=== PATIENT | female | born 1930 | race Caucasian/White ===

== ENCOUNTER 2018-05-29 15:13 | Inpatient (IN) ==
[2018-05-29] MEDS ORDERED: Naloxone 0.4 MG/ML INJ IVP PRN (19:48)
[2018-05-29] MEDS ORDERED: D5% in Water 1,000 ML IVC PRN (19:53)
[2018-05-29] MEDS ORDERED: Dextrose Gel 15 GM/37.5 ML TUBE PO PRN ×2 (19:53)
[2018-05-29] MEDS ORDERED: *HR* Dextrose 50 % in Water (Syg) 50 ML SYRINGE IVP PRN (19:53)
[2018-05-29] MEDS ORDERED: Levofloxacin 750 MG/150 ML 750 MG/150 ML BAG IVPB SCH (20:15)
--- NOTE | 2018-05-29 20:15 | Internal Med History&Physical ---
Date of Encounter: 05/29/18 Time of Encounter: 20:07 Internal Medicine - H&P: HPI Chief complaint: Healthcare associated pneumonia Plans for Post Hospital Care: Hospice - Home History of present illness: Ms. Sma is a 87 year old female with a past medical history of CK D, NIDDM, hypertension, chronic pain and dementia currently on hospice care who initially presented to [facility] with complaints of several day history of worsening shortness of breath associated with cough and congestion. Given patient's dementia, I was unable to obtain a history from the patient and subsequent information was obtained from records. Patient was subsequently admitted to [facility] after findings of bilateral multilobar pneumonia and acute respiratory failure with hypoxia; she was started on broad-spectrum antibiotics for healthcare associated pneumonia coverage given a recent history of admission for pneumonia in March. Initial labs were notable for a white count of 28.6 with left shift. Her white blood cell count initially improved to 20.6 but then increased 28.6 yesterday. Levaquin was added to her antibiotic coverage. Repeat chest x-ray at [facility] prior to transfer revealed increasing bilateral multifocal infiltrates and areas of consolidation thus prompting transfer to [facility] for further evaluation. Patient is hospice and is DNR CC. However, family has requested intervention for her pneumonia. On my assessment, patient was lying in bed, alert oriented 1. Patients nasal cannula was found on the floor. Pulse Ox showed O2 saturation of 86-87% on room air. She appears to be severely demented but answers and responds to questions somewhat appropriately and is able to follow commands. Past Med Surg Social Fam HX - Past Medical History Medical history: arthritis, cancer, dementia, diabetes, fibromyalgia, hyperlipidemia, hypertension, migraine, renal disease Additional medical history: Hx rt breast CA Lt nephrectomy Psychiatric history: anxiety, depression - Past Surgical History Surgical History: appendectomy, breast surgery, cholecystectomy Additional surgical history: Lt Nephrectomy, Lt ankle surgery compound Fx - Social History Smoking Status: Never smoker - Additional Family History Additional family history: Noncontributory Internal Medicine - H&P: Meds Albuterol Sulfate [Albuterol Inhaler] 2 puff IH Q4-6H PRN 05/29/18 [History] Amlodipine Besylate 5 mg PO DAILY 05/29/18 [History] Calcitriol [Rocaltrol] 0.25 mcg PO DAILY 05/29/18 [History] Escitalopram [Lexapro] 20 mg PO DAILY 05/29/18 [History] Furosemide [Lasix] 40 mg PO BID 05/29/18 [History] Gabapentin [Neurontin] 100 mg PO HS 05/29/18 [History] Insulin DETEMIR [Levemir Flextouch] 12 units SQ HS 05/29/18 [History] LORazepam [Ativan] 1 mg PO Q12H PRN 05/29/18 [History] Morphine Sulfate [Maggie] 1 cap PO BID 05/29/18 [History] Pantoprazole Sodium [Protonix] 40 mg PO DAILY 05/29/18 [History] Propranolol HCl [Innopran Xl] 120 mg PO DAILY 05/29/18 [History] Rizatriptan Benzoate [Maxalt] 10 mg PO AD PRN 05/29/18 [History] SitaGLIPtin [Januvia] 100 mg PO HS 05/29/18 [History] cloNIDine HCl [Clonidine HCl] 0.2 mg PO DAILY 05/29/18 [History] glipiZIDE [Glipizide ER] 10 mg PO DAILY 05/29/18 [History] Allergy/AdvReac Type Severity Reaction Status Date / Time No Known Allergies Allergy Unverified 01/27/15 08:25 All Systems PM: A 10-system review of systems was performed and is negative for pertinent findings except as documented above in the HPI. - Constitutional Constitutional: no chills, no fever(s), no night sweats - EENT Eyes: no change in vision, no discharge, no pain, no photophobia Ears: no ear discharge, no ear pain, no tinnitus Nose, mouth and throat: no dysphagia, no nasal discharge, no neck pain, no sore throat - Cardiovascular Cardiovascular ROS IM: no chest pain, no diaphoresis, no dyspnea, no lightheadedness, no palpitations, no syncope - Respiratory Respiratory: no cough, no dyspnea, no wheezing, no excessive phlegm production - Gastrointestinal Gastrointestinal: no abdominal pain, no diarrhea, no hematemesis, no hematochezia, no melena, no nausea, no vomiting - Genitourinary Genitourinary: no change in urinary stream, no dysuria, no flank pain, no hematuria - Musculoskeletal Musculoskeletal ROS IM: no numbness, no tingling - Integumentary Integumentary IM: no rash, no unusual bruising - Neurological Neurological ROS: no confusion, no convulsions, no focal weakness, no numbness, no tingling, no tremor(s) - Hematologic/Lymphatic Hematologic/Lymphatic: no easy bruising - Constitutional Exam: General: Alert and oriented 3 Skin:Normal color, no rash, no lesions. HEENT:EOM, pupils equal, round and reactive. Cardiovascular:Normal S1 & S2, no rubs, murmurs or gallops. No JVD. Pulse regular. Lungs: Rhonchorous breath sounds bilaterally Abdomen:Soft, non-tender, no rigidity. Extremities:No deformity, no edema or tenderness, no joint swelling or clubbing. Neurological:Normal cognition and motor skills. Pulses:Carotid and radial pulses normal +2. Rest of the physical exam is non contributory Internal Med - H&P Results - Labs CBC & Chem 7: 05/29/18 20:26 05/29/18 20:19 - Assessment and Plan (1) Acute hypoxemic respiratory failure Current Visit: Yes Status: Acute Assessment and plan: Patient presented with acute hypoxic respiratory failure after found to be saturating in the 70s on room air per EMS. Patient initially required 6 L nasal cannula which was subsequently bumped up to 8 L. Patient is not currently on oxygen at home. Etiology likely bilateral multilobar pneumonia currently receiving broad-spectrum antibiotics for age. Patient transferred as she appeared to not be improving. Repeat chest x-ray at [place] showed increasing infiltrates. When I initially assessed patient I found her to be off her oxygen with her nasal cannula on the floor saturating at 86% on room air. After placement of nasal cannula and the patient her saturations came up to 93% currently on 8 L. Diffuse rhonchi appreciated on lung examination Patient otherwise does not appear to be in respiratory distress. Patient did not clinically appear to be volume overloaded. -Continue supportive care up to intubation -Continuous pulse oximetry -Scheduled duo nebs -We will obtain a CT scan of the chest as I could not find any reports in her chart. -Continue treatment for healthcare associated pneumonia -BiPAP as needed -We will obtain pulmonary consult (2) Healthcare-associated pneumonia Current Visit: Yes Status: Acute Assessment and plan: Continue broad-spectrum coverage with Vanco and Zosyn; Levaquin -We will obtain blood and sputum cultures -Urine Legionella/strep antigen -Pulmonary consult (3) Dementia Current Visit: Yes Status: Chronic Assessment and plan: Patient currently alert oriented 1. This appears to be her baseline but will need confirmation. -Continue home medications Qualifiers: Alzheimer's disease onset: unspecified onset Qualified Code(s): G30.9 - Alzheimer's disease, unspecified; F02.81 - Dementia in other diseases classified elsewhere with behavioral disturbance (4) Type 2 diabetes mellitus Current Visit: Yes Status: Acute Qualifiers: Qualified Code(s): E11.9 - Type 2 diabetes mellitus without complications (5) Hypertension Current Visit: Yes Status: Acute Assessment and plan: Resume home antihypertensives assuming blood pressure remained stable Qualifiers: Hypertension type: unspecified Qualified Code(s): I10 - Essential (primary) hypertension (6) DVT prophylaxis Current Visit: Yes Status: Acute Assessment and plan: Subcutaneous heparin - Time Spent With Patient Total time spent is greater than 50% in coordination of care (as documented) at patient's floor/unit and/or counseling patient:
[2018-05-29 20:41] LABS: Basophils % 0.3 %; Eosinophils % 0.2 %; Immature Granulocytes % 4.6 % (0-4); Mean Platelet Volume 10.4 fL (9.4-12.4); Red Cell Distribution Width 12.7 % (11.5-14.5)
[2018-05-29 20:42] LABS: Basophils # 0.1 K/mcL (0.0-0.2); Eosinophils # 0.1 K/mcL (0.0-0.6); Hematocrit 34.2 % (35.3-44.9); Hemoglobin 11.7 g/dL (11.5-15.4); Lymphocytes # 0.8 K/mcL (0.6-4.6); Lymphocytes % 2.6 %; Mean Corpuscular HGB Conc 34.2 g/dL (31.6-35.5); Mean Corpuscular Volume 84.9 fL (83.0-100.0); Monocytes # 1.9 K/mcL (0.0-1.3); Monocytes % 6.3 %; Neutrophils # 26.5 K/mcL (1.6-8.9); Platelet Count 340 K/mcL (140-400); Red Blood Count 4.03 M/mcL (3.82-4.97)
[2018-05-29 20:50] LABS: INR 1.2; Prothrombin Time 13.1 Seconds (9.4-12.1)
[2018-05-29 20:52] LABS: Activated Partial Thrombo Time 35.5 Seconds (26.0-36.0)
[2018-05-29 21:00] LABS: Albumin 2.8 g/dL (3.5-5.7); Albumin/Globulin Ratio 0.6 (1.1-2.2); Bilirubin,Total 1.2 mg/dL (0.3-1.0); Calcium 9.2 mg/dL (8.6-10.3); Globulin 4.4 g/dL (2.4-3.5); Magnesium 1.5 mg/dL (1.6-2.6); Potassium 3.6 mEq/L (3.5-5.1); Total Protein 7.2 g/dL (6.4-8.9)
[2018-05-29 21:05] LABS: Hypersegmented Neutrophils Present (Not Present)
[2018-05-29] MEDS: Ipratropium/Albuterol Neb 3 ML IH SCH ×2 (21:07→23:29)
[2018-05-29 21:10] LABS: Troponin I 0.06 ng/mL (< 0.04)
[2018-05-29] MEDS: Piperacillin/Tazobactam 3.375 GM in 0.9 % Sodium Chloride Mini Bag 100 ML IVPB SCH (22:55)
[2018-05-29] MEDS: 0.9 % Sodium Chloride 1,000 ML IVC SCH (22:56)
[2018-05-29] MEDS: *HR* Heparin 5,000 UNIT/ML VIAL SQ SCH (22:56)
[2018-05-29] MEDS: Insulin LISPRO 300 UNITS/3 ML VIAL SQ SCH (22:57)
[2018-05-30] MEDS: Ipratropium/Albuterol Neb 3 ML IH SCH ×5 (04:23→22:54)
[2018-05-30] MEDS: Piperacillin/Tazobactam 3.375 GM in 0.9 % Sodium Chloride Mini Bag 100 ML IVPB SCH ×3 (05:01→20:23)
[2018-05-30] MEDS ORDERED: (Rizatriptan Benzoate [Maxalt] 10 MG) PO PRN (06:51)
[2018-05-30] MEDS: Insulin LISPRO 300 UNITS/3 ML VIAL SQ SCH ×3 (08:17→16:34)
[2018-05-30] MEDS: Propranolol LA (24 HR) 60 MG CAP.SA.24H PO SCH (08:20)
[2018-05-30] MEDS: *HR* Heparin 5,000 UNIT/ML VIAL SQ SCH ×3 (08:21→23:51)
[2018-05-30] MEDS: amLODIPine 5 MG TABLET PO SCH (08:21)
[2018-05-30] MEDS: cloNIDine HCl 0.1 MG TABLET PO SCH (08:21)
[2018-05-30] MEDS: Furosemide 40 MG TABLET PO SCH ×2 (08:26→16:35)
[2018-05-30] MEDS: Levofloxacin 750 MG/150 ML 750 MG/150 ML BAG IVPB SCH (11:38)
[2018-05-30 14:29] LABS: Bilirubin,Urine Negative (Negative); Blood,Urine Trace (Negative); Clarity,Urine Cloudy (Clear); Color,Urine Yellow (Yellow); Glucose,Urine (UA) Normal (Normal); Ketones,Urine Negative (Negative); Leukocyte Esterase,Urine Negative (Negative); Nitrite,Urine Negative (Negative); Protein,Urine 30 mg/dL (Neg-Trace); Specific Gravity,Urine 1.012 (1.010-1.025); Urobilinogen,Urine Normal (Normal)
[2018-05-30 15:14] LABS: WBC,Urine 0-3 per hpf (0-3)
[2018-05-30 15:15] LABS: Bacteria,Urine Many per hpf (None-Few); RBC,Urine 0-3 per hpf (0-3); Squamous Epithelial Cell,Urine Many per lpf (None-Few)
--- NOTE | 2018-05-30 15:53 | Pulmonology Consult Note ---
Date of Encounter: 05/30/18 Time of Encounter: 12:25 Assessment and Plan (1) Acute hypoxemic respiratory failure Current Visit: Yes Status: Acute History is very limited and I have reviewed the chart from outside hospital that showed per CXR multifocal pneumonia and that is most likely the cause of the respiratory failure. She is on broad spectrum antibiotics and checking for MRSA is recommended and follow up blood culture. It is not clear to me if she is on home O2. Patient examined in the presence of the nurse and subsequently checked her with respiratory therapist and I don't feel she needs this frequent neb treatment and will change it to q6-8 hrs. Wean FIO2 to keep SPO2 around 90%. Unfortunately due to her dementia she can't do incentive spirometry. (2) Healthcare-associated pneumonia Current Visit: Yes Status: Acute Patient is on broad-spectrum antibiotic and check for MRSA and if positive then cover with Vancomycin. I suspect antibiotics can be de-escalate quickly based on the cultures. I don't feel she needs bronchoscopy at this time. I suspect she will need some gently hydration. Thanks for consultation and call for any questions (3) Dementia Current Visit: Yes Status: Chronic Qualifiers: Alzheimer's disease onset: unspecified onset Qualified Code(s): G30.9 - Alzheimer's disease, unspecified; F02.80 - Dementia in other diseases classified elsewhere without behavioral disturbance History of Present Illness Consult date: 05/30/18 Requesting physician: Mariam Cali Reason for consult: hypoxemia, pneumonia Chief complaint: Shortness of Breath History of present illness: This is a pleasant 87 year old female very confused who has multiple medical problems and dementia who is on hospice care and transferred first to [facility] with several days of worsening of shortness of breath for several days and was transferred to [facility] after that. Patient is not able to give any history and this was taken from the chart and not able to reach family at this time. Reviewing the chart from outside hospital, CXR showed pneumonia. Patient has cough and congestion. Patient code status is DNR/DNI and this history is very limited. Past Med Surg Social Fam HX - Past Medical History Medical history: arthritis, cancer, dementia, diabetes, fibromyalgia, hyperlipidemia, hypertension, migraine, renal disease Additional medical history: Hx rt breast CA Lt nephrectomy Psychiatric history: anxiety, depression - Past Surgical History Surgical History: appendectomy, breast surgery, cholecystectomy Additional surgical history: Lt Nephrectomy, Lt ankle surgery compound Fx - Social History Smoking Status: Never smoker Medications and Allergies Albuterol Sulfate [Albuterol Inhaler] 2 puff IH Q4-6H PRN 05/29/18 [History] Amlodipine Besylate 5 mg PO DAILY 05/29/18 [History] Calcitriol [Rocaltrol] 0.25 mcg PO DAILY 05/29/18 [History] Escitalopram [Lexapro] 20 mg PO DAILY 05/29/18 [History] Furosemide [Lasix] 40 mg PO BID 05/29/18 [History] Gabapentin [Neurontin] 100 mg PO HS 05/29/18 [History] Insulin DETEMIR [Levemir Flextouch] 12 units SQ HS 05/29/18 [History] LORazepam [Ativan] 1 mg PO Q12H PRN 05/29/18 [History] Morphine Sulfate [Maggie] 1 cap PO BID 05/29/18 [History] Pantoprazole Sodium [Protonix] 40 mg PO DAILY 05/29/18 [History] Propranolol HCl [Innopran Xl] 120 mg PO DAILY 05/29/18 [History] Rizatriptan Benzoate [Maxalt] 10 mg PO AD PRN 05/29/18 [History] SitaGLIPtin [Januvia] 100 mg PO HS 05/29/18 [History] cloNIDine HCl [Clonidine HCl] 0.2 mg PO DAILY 05/29/18 [History] glipiZIDE [Glipizide ER] 10 mg PO DAILY 05/29/18 [History] Allergy/AdvReac Type Severity Reaction Status Date / Time No Known Allergies Allergy Unverified 01/27/15 08:25 ROS unobtainable: due to mental status All Systems: The remainder of the systems were reviewed and are negative Physical Examination Vital Signs: Vital Signs, Last 4 Hours Temp Pulse Resp BP Pulse Ox 05/30/18 15:31 18 94 05/30/18 15:11 98.3 F 63 18 134/62 95 05/30/18 11:54 98.0 F 61 20 162/75 92 General appearance: no acute distress, other (Confused) Eyes: nonicteric ENT: oropharynx dry Neck: supple, no lymphadenopathy Effort: mildly labored Auscultation: bilateral: diminished breath sounds Percussion: bilateral: not dull Cardiovascular: regular rate and rhythm Gastrointestinal: normoactive bowel sounds, non-distended Extremities: no cyanosis unable to assess due to mental status anxious Results - Laboratory Findings CBC and BMP: 05/29/18 20:26 05/29/18 20:19 PT/INR, D-dimer PT 13.1 Seconds (9.4-12.1) H 05/29/18 20:19 Abnormal lab findings: Abnormal lab results WBC 30.8 K/mcL (4.3-11.1) H* 05/29/18 20:26 Hct 34.2 % (35.3-44.9) L 05/29/18 20: Immature Gran % 4.6 % (0-4) H 05/29/18 20: Neutrophils # 26.5 K/mcL (1.6-8.9) H 05/29/18 20: Monocytes # 1.9 K/mcL (0.0-1.3) H 05/29/18 20:26 Hypersegmented Neuts Present (Not Present) A 05/29/18 20: PT 13.1 Seconds (9.4-12.1) H 05/29/18 20:19 Sodium 122 mEq/L (136-145) L 05/29/18 20:19 Chloride 86 mEq/L (98-107) L 05/29/18 20:19 BUN 31 mg/dL (8-23) H 05/29/18 20:19 Creatinine 1.52 mg/dL (0.60-1.20) H 05/29/18 20:19 Est GFR ( Amer) 39 (> 60) L 05/29/18 20:19 Est GFR (Non-Af Amer) 32 (> 60) L 05/29/18 20:19 Glucose 282 mg/dL (70-105) H 05/29/18 20:19 POC Glucose 149 mg/dL (70-99) H 05/30/18 11:54 Calculated Osmolality 271 (280-300) L 05/29/18 20:19 Magnesium 1.5 mg/dL (1.6-2.6) L 05/29/18 20:19 Total Bilirubin 1.2 mg/dL (0.3-1.0) H 05/29/18 20:19 Alkaline Phosphatase 231 Units/L (34-104) H 04/11/19 20:19 Troponin I 0.06 ng/mL (< 0.04) H* 05/30/18 14:33 Albumin 2.8 g/dL (3.5-5.7) L 05/29/18 20:19 Globulin 4.4 g/dL (2.4-3.5) H 05/29/18 20:19 Albumin/Globulin Ratio 0.6 (1.1-2.2) L 05/29/18 20:19 Urine Clarity Cloudy (Clear) A 05/30/18 13:39 Urine Protein 30 mg/dL (Neg-Trace) H 05/30/18 13:39 Urine Blood Trace (Negative) H 05/30/18 13:39 Ur Squamous Epith Cells Many per lpf (None-Few) H 05/30/18 13:39 Urine Bacteria Many per hpf (None-Few) H 05/30/18 13:39 - Microbiology Findings Microbiology Findings: Microbiology, Last 48 Hours 05/29/18 20:19 Blood Culture - Preliminary Peripheral Venipuncture Culture is incubating and being continuously monitored for growth. Final report to follow. 05/29/18 20:26 Blood Culture - Preliminary Peripheral Venipuncture Culture is incubating and being continuously monitored for growth. Final report to follow. - Diagnostic Findings Chest x-ray: report reviewed - Clinical Findings Intake & Output: Intake & Output 05/29/18 05/30/18 05/30/18 23:59 07:59 15:59 Intake Total 490 / 490 100 / 100 Output Total 0 / 0 0 / 0 Balance 490 / 490 100 / 100 Weight 67.4 kg 68.6 kg Consult Discharge Plan - Plan Referrals: Jovi Sierra MD [Primary Care Provider] -
[2018-05-30] MEDS: 0.9 % Sodium Chloride 1,000 ML IVC SCH (20:23)
[2018-05-30] MEDS: Gabapentin 100 MG CAPSULE PO SCH (20:24)
--- NOTE | 2018-05-30 22:08 | Internal Med Progress Note ---
Hospitalist Progress Note - Encounter Date of Encounter: 05/31/18 Time of Encounter: 19:00 - Subjective Interval History: SUBJECTIVE: The patient feels better. Her breathing is not labored any more. She is using supplemental oxygen at 3 L/min nasal cannula (8 L/min, when coming to the emergency room). She does have mild cough but not wheezing. Denies chest pain. Denies abdominal pain, nausea and vomiting. She has normal urination. OBJECTIVE: Skin: Free of rash and discoloration. ENMT: Oral/pharyngeal mucosa is normal in appearance. Eyes: Sclera is white. There is no discharge from eyes. Respiratory: Normal breath sounds; no crackles or wheezes. CV: Heart is regular; no gallop or murmur. GI: Abdomen is soft and not tender. There is no palpable mass or visceromegaly. Neuro: There is no focal deficits. ADDITIONAL DATA: Chest x-ray from the emergency room showed bilateral multi lobar pneumonia. CBC shows hemoglobin of 11.7 with WBC of 30.8 thousand and normal platelet count. Sodium is 122 (134 on 07/22/17) with potassium of 3.6 and bicarb of 24. Creatinine is 1.52 (2.03 on 11/12/17); she has only one kidney. ASSESSMENT AND PLAN: Healthcare associated pneumonia/acute respiratory failure with hypoxia. She is on IV Zosyn and IV Levaquin. She gets nebulizer treatments with DuoNeb every 8 hours. She gets supplemental oxygen. Hyponatremia. Likely secondary to Lexapro. I will stop this medication. I will be checking her electrolytes daily. Type 2 diabetes mellitus. On Levemir and Januvia at home. Currently, she gets up when necessary Humalog. She will get Levemir at 10 units subcutaneously daily at bedtime. Hypertension. Seems to be under control. On Inderal LA and Norvasc. She gets clonidine 0.2 mg daily. GERD. On Prilosec. - Exam Vitals: Temp Pulse Resp BP Pulse Ox 97.8 F 60 18 147/68 95 05/30/18 20:04 05/30/18 20:04 05/30/18 20:04 05/30/18 20:04 05/30/18 20:27 Exam: xx - Assessment and Plan (1) Healthcare-associated pneumonia Current Visit: Yes Status: Acute (2) Acute hypoxemic respiratory failure Current Visit: Yes Status: Acute (3) Hyponatremia Current Visit: Yes Status: Acute (4) Type 2 diabetes mellitus Current Visit: Yes Status: Acute (5) Hypertension Current Visit: Yes Status: Acute - Time Spent with Patient Total time spent is greater than 50% in coordination of care (as documented) at patient's floor/unit and/or counseling patient: 25 - 35 minutes Plan of Care Discussed with: patient Internal Medicine: Result - Labs CBC & Chem 7: 05/31/18 11:45 05/31/18 10:58 Labs: Cardiac Enzymes 05/30/18 05/30/18 Range/Units 08:26 14:33 Troponin I 0.05 H* 0.06 H* (< 0.04) ng/mL Urine 05/30/18 Range/Units 13:39 Urine Color Yellow (Yellow) Urine Clarity Cloudy A (Clear) Urine pH 6.0 (5.0-8.0) pH Units Ur Specific [place] 1.012 (1.010-1.025) Urine Protein 30 H (Neg-Trace) mg/dL Urine Glucose (UA) Normal (Normal) mg/dL - ABG Interpretation ABG results: PT/INR, D-dimer PT 13.1 Seconds (9.4-12.1) H 05/29/18 20:19 Consult Discharge Plan - Plan Referrals: Jovi Sierra MD [Primary Care Provider] - (4) Type 2 diabetes mellitus Qualifiers: Qualified Code(s): E11.9 - Type 2 diabetes mellitus without complications (5) Hypertension Qualifiers: Hypertension type: unspecified Qualified Code(s): I10 - Essential (primary) hypertension
[2018-05-31] MEDS: Piperacillin/Tazobactam 3.375 GM in 0.9 % Sodium Chloride Mini Bag 100 ML IVPB SCH ×2 (05:36→16:32)
[2018-05-31] MEDS: Ipratropium/Albuterol Neb 3 ML IH SCH ×3 (07:58→21:35)
[2018-05-31] MEDS: *HR* Heparin 5,000 UNIT/ML VIAL SQ SCH ×2 (08:10→16:32)
[2018-05-31] MEDS: Propranolol LA (24 HR) 60 MG CAP.SA.24H PO SCH (08:10)
[2018-05-31] MEDS: Insulin LISPRO 300 UNITS/3 ML VIAL SQ SCH ×3 (08:10→16:32)
[2018-05-31] MEDS: cloNIDine HCl 0.1 MG TABLET PO SCH (08:11)
[2018-05-31] MEDS: Furosemide 40 MG TABLET PO SCH ×2 (08:11→16:32)
[2018-05-31] MEDS: amLODIPine 5 MG TABLET PO SCH (08:11)
[2018-05-31 11:40] LABS: Calcium 8.8 mg/dL (8.6-10.3); Magnesium 1.5 mg/dL (1.6-2.6)
[2018-05-31 11:57] LABS: Hematocrit 29.8 % (35.3-44.9); Hemoglobin 10.2 g/dL (11.5-15.4); Mean Corpuscular HGB Conc 34.2 g/dL (31.6-35.5); Mean Corpuscular Hemoglobin 29.1 pg (28.0-33.3); Mean Corpuscular Volume 85.1 fL (83.0-100.0); Mean Platelet Volume 10.2 fL (9.4-12.4); Platelet Count 335 K/mcL (140-400); Red Cell Distribution Width 13.1 % (11.5-14.5)
[2018-05-31 12:28] LABS: Eosinophils # 0.5 K/mcL (0.0-0.6); Lymphocytes # 1.1 K/mcL (0.6-4.6); Monocytes # 1.1 K/mcL (0.0-1.3); Neutrophils # 23.9 K/mcL (1.6-8.9); Platelet Estimate Normal (Normal)
[2018-05-31] MEDS: Acetaminophen 325 MG TABLET PO PRN (14:01)
[2018-05-31] MEDS: 0.9 % Sodium Chloride 1,000 ML IVC SCH (16:33)
[2018-05-31] MEDS: 0.9 % Sodium Chloride w KCl 20 MEQ/1,000 ML MLS IVC SCH (18:18)
[2018-05-31] MEDS: Gabapentin 100 MG CAPSULE PO SCH (22:15)
--- NOTE | 2018-05-31 22:52 | Internal Med Progress Note ---
Hospitalist Progress Note - Encounter Date of Encounter: 05/31/18 Time of Encounter: 19:00 - Subjective Interval History: SUBJECTIVE: The patient feels progressively better. Her breathing is not labored any more. She is using supplemental oxygen at 3 L/min nasal cannula (8 L/min, when coming to the emergency room). She does have mild cough but not wheezing. Denies chest pain. Denies abdominal pain, nausea and vomiting. She has normal urination. She feels weak. She is not ready for any ambulation yet. OBJECTIVE: Skin: Free of rash and discoloration. ENMT: Oral/pharyngeal mucosa is normal in appearance. Eyes: Sclera is white. There is no discharge from eyes. Respiratory: Normal breath sounds; no crackles or wheezes. CV: Heart is regular; no gallop or murmur. GI: Abdomen is soft and not tender. There is no palpable mass or visceromegaly. Neuro: There is no focal deficits. ADDITIONAL DATA: Chest x-ray from today shows multifocal bilateral pulmonary infiltrates, consistent with pneumonia. CBC shows hemoglobin of 10.2 with WBC of 26.6 thousand (30.8 thousand yesterday). Sodium is 125 (122 the day before yesterday) with potassium of 3.0 (3.6 the day before yesterday) and bicarb of 20. Creatinine is 1.60; (1.52 the day before y esterday). ASSESSMENT AND PLAN: Healthcare associated pneumonia/acute respiratory failure with hypoxia. She is on IV Zosyn and IV Levaquin. She gets nebulizer treatments with DuoNeb every 8 hours. She gets supplemental oxygen. Hyponatremia. Likely secondary to Lexapro. I stopped this medication. She has developed mild acute kidney injury. Likely due to volume depletion. I will stop her Lasix. She will get IV normal saline with the addition of potassium chloride (to address her dehydration and hypokalemia). Type 2 diabetes mellitus. On Levemir and Januvia at home. Currently, on L evemir and when necessary Humalog. Hypertension. I feel, that she is hypotensive. I will decrease dose of Inderal LA and clonidine by 50%. To continue amlodipine. GERD. On Prilosec. - Exam Vitals: Temp Pulse Resp BP Pulse Ox 97.5 F L 56 16 110/60 91 05/31/18 19:05 05/31/18 19:05 05/31/18 21:35 05/31/18 19:05 05/31/18 21:35 Exam: xx - Assessment and Plan (1) Healthcare-associated pneumonia Current Visit: Yes Status: Acute (2) Acute hypoxemic respiratory failure Current Visit: Yes Status: Acute (3) Hyponatremia Current Visit: Yes Status: Acute (4) MEGAN (acute kidney injury) Current Visit: Yes Status: Acute (5) Hypokalemia Current Visit: Yes Status: Acute (6) Type 2 diabetes mellitus Current Visit: Yes Status: Acute (7) Hypertension Current Visit: Yes Status: Acute (8) Dementia Current Visit: Yes Status: Chronic - Time Spent with Patient Total time spent is greater than 50% in coordination of care (as documented) at patient's floor/unit and/or counseling patient: Internal Medicine: Result - Labs CBC & Chem 7: 05/31/18 11:45 05/31/18 10:58 Labs: Short CBC 05/31/18 Range/Units 11:45 WBC 26.6 H (4.3-11.1) K/mcL Hgb 10.2 L D (11.5-15.4) g/dL Hct 29.8 L (35.3-44.9) % Plt Count 335 (140-400) K/mcL Neutrophils # 23.9 H (1.6-8.9) K/mcL BMP 05/31/18 10:58 Sodium 125 L Potassium 3.0 L Chloride 92 L Carbon Dioxide 20 L BUN 29 H Creatinine 1.60 H Glucose 218 H Calcium 8.8 - ABG Interpretation ABG results: PT/INR, D-dimer PT 13.1 Seconds (9.4-12.1) H 05/29/18 20:19 - Impressions Impressions Chest X-Ray 05/31/18 07:00 IMPRESSION: Multifocal bilateral pulmonary infiltrates consistent with pneumonia. Continued plain film follow-up recommended to ensure resolution. D/ / Elgin Darnell MD / Elgin Darnell MD Interpreting Provider: Elgin Darnell MD Consult Discharge Plan - Plan Referrals: Jovi Sierra MD [Primary Care Provider] - (6) Type 2 diabetes mellitus Qualifiers: Qualified Code(s): E11.9 - Type 2 diabetes mellitus without complications (7) Hypertension Qualifiers: Hypertension type: unspecified Qualified Code(s): I10 - Essential (primary) hypertension (8) Dementia Qualifiers: Alzheimer's disease onset: unspecified onset Qualified Code(s): G30.9 - Alzheimer's disease, unspecified; F02.81 - Dementia in other diseases classified elsewhere with behavioral disturbance
[2018-05-31] MEDS ORDERED: Levofloxacin 750 MG/150 ML 750 MG/150 ML BAG IVPB SCH (23:00)
[2018-06-01] MEDS: Acetaminophen 325 MG TABLET PO PRN ×2 (00:39→11:00)
[2018-06-01] MEDS: *HR* Heparin 5,000 UNIT/ML VIAL SQ SCH ×4 (00:40→23:10)
[2018-06-01] MEDS: Piperacillin/Tazobactam 3.375 GM in 0.9 % Sodium Chloride Mini Bag 100 ML IVPB SCH ×2 (05:28→17:32)
[2018-06-01 07:48] LABS: Hemoglobin 10.4 g/dL (11.5-15.4)
[2018-06-01 07:50] LABS: Hematocrit 31.1 % (35.3-44.9); Mean Corpuscular HGB Conc 33.4 g/dL (31.6-35.5); Mean Corpuscular Hemoglobin 28.9 pg (28.0-33.3); Mean Corpuscular Volume 86.4 fL (83.0-100.0); Mean Platelet Volume 10.6 fL (9.4-12.4); Platelet Count 366 K/mcL (140-400); Red Cell Distribution Width 13.3 % (11.5-14.5)
[2018-06-01] MEDS: Ipratropium/Albuterol Neb 3 ML IH SCH ×3 (08:05→23:35)
[2018-06-01] MEDS: amLODIPine 5 MG TABLET PO SCH (08:08)
[2018-06-01] MEDS: cloNIDine HCl 0.1 MG TABLET PO SCH (08:09)
[2018-06-01] MEDS: Propranolol LA (24 HR) 60 MG CAP.SA.24H PO SCH (08:09)
[2018-06-01] MEDS: Insulin LISPRO 300 UNITS/3 ML VIAL SQ SCH ×3 (08:09→17:33)
[2018-06-01] MEDS: 0.9 % Sodium Chloride w KCl 20 MEQ/1,000 ML MLS IVC SCH (08:10)
[2018-06-01] MEDS: 0.9 % Sodium Chloride 1,000 ML IVC SCH ×2 (08:10→23:44)
[2018-06-01 08:52] LABS: Calcium 8.8 mg/dL (8.6-10.3); Magnesium 2.5 mg/dL (1.6-2.6); Potassium 3.2 mEq/L (3.5-5.1)
[2018-06-01 08:57] LABS: Eosinophils # 0.6 K/mcL (0.0-0.6); Lymphocytes # 3.8 K/mcL (0.6-4.6); Monocytes # 0.6 K/mcL (0.0-1.3); Neutrophils # 21.1 K/mcL (1.6-8.9)
[2018-06-01 09:06] LABS: Platelet Estimate Normal (Normal)
[2018-06-01] MEDS: Levofloxacin 750 MG/150 ML 750 MG/150 ML BAG IVPB SCH (11:01)
[2018-06-01] MEDS: Ondansetron 4 MG/2 ML VIAL IVP PRN (13:34)
[2018-06-01] MEDS: OXYCODONE Oral CONC 10 MG/0.5 ML ORAL.SYG SL PRN ×2 (17:32→23:11)
[2018-06-01] MEDS: Gabapentin 100 MG CAPSULE PO SCH (20:11)
--- NOTE | 2018-06-01 21:32 | Internal Med Progress Note ---
Hospitalist Progress Note - Encounter Date of Encounter: 06/01/18 Time of Encounter: 19:00 - Subjective Interval History: SUBJECTIVE: The patient feels progressively better. Her breathing is not labored any more. She is using supplemental oxygen at 3-4 L/min nasal cannula (8 L/min, when coming to the emergency room). She does have mild cough but not wheezing. Denies chest pain. Denies abdominal pain, nausea and vomiting. She has normal urination. She feels weak. She is not ready for any ambulation yet. OBJECTIVE: Skin: Free of rash and discoloration. ENMT: Oral/pharyngeal mucosa is normal in appearance. Eyes: Sclera is white. There is no discharge from eyes. Respiratory: Normal breath sounds; no crackles or wheezes. CV: Heart is regular; no gallop or murmur. GI: Abdomen is soft and not tender. There is no palpable mass or visceromegaly. Neuro: There is no focal deficits. ADDITIONAL DATA: Chest x-ray from yesterday showed multifocal bilateral pulmonary infiltrates, consistent with pneumonia. She continues to have high WBC of 27.4 thousand; 30.8 thousand at admission. It is mostly neutrophils. With hemoglobin of 10.4 and normal platelet count. Sodium is 128 (122 at admission) with potassium of 3.2 (3.0 yesterday) and bica rb of 21. Creatinine is 1.52 (1.60 yesterday). Magnesium is 2.5; 1.5 yesterday. ASSESSMENT AND PLAN: Healthcare associated pneumonia/acute respiratory failure with hypoxia. She is on IV Zosyn and IV Levaquin. I will change her nebulizer treatments to every 6 hours. She gets supplemental oxygen. Hyponatremia. Likely secondary to Lexapro. I stopped this medication at admission. The sodium is rising. She has developed mild acute kidney injury. Likely due to volume depletion. I will stop her Lasix. She will get IV normal saline with the addition of potassium chloride (to address her dehydration and hypokalemia). I will start potassium chloride by mouth to help potassium chloride in IV fluids. Type 2 diabetes mellitus. On Levemir and Januvia at home. Currently, on Levemir and when necessary Humalog. Hypertension. She was hypotensive yesterday. Better after decreasing dose of clonidine and Inderal LA. GERD. On Prilosec. - Exam Vitals: Temp Pulse Resp BP Pulse Ox 97.8 F 58 16 130/64 94 06/01/18 19:16 06/01/18 19:16 06/01/18 19:16 06/01/18 19:16 06/01/18 19:16 Exam: xx - Assessment and Plan (1) Healthcare-associated pneumonia Current Visit: Yes Status: Acute (2) Acute hypoxemic respiratory failure Current Visit: Yes Status: Acute (3) Hyponatremia Current Visit: Yes Status: Acute (4) Type 2 diabetes mellitus Current Visit: Yes Status: Acute (5) Hypertension Current Visit: Yes Status: Acute - Time Spent with Patient Total time spent is greater than 50% in coordination of care (as documented) at patient's floor/unit and/or counseling patient: 25 - 35 minutes Plan of Care Discussed with: patient Internal Medicine: Result - Labs CBC & Chem 7: 06/01/18 07:02 06/01/18 07:02 Labs: Short CBC 06/01/18 Range/Units 07:02 WBC 27.4 H (4.3-11.1) K/mcL Hgb 10.4 L (11.5-15.4) g/dL Hct 31.1 L (35.3-44.9) % Plt Count 366 (140-400) K/mcL Neutrophils # 21.1 H (1.6-8.9) K/mcL BMP 06/01/18 07:02 Sodium 128 L Potassium 3.2 L Chloride 94 L Carbon Dioxide 21 L BUN 30 H Creatinine 1.52 H Glucose 162 H Calcium 8.8 - ABG Interpretation ABG results: PT/INR, D-dimer PT 13.1 Seconds (9.4-12.1) H 05/29/18 20:19 Consult Discharge Plan - Plan Referrals: Jovi Sierra MD [Primary Care Provider] - (4) Type 2 diabetes mellitus Qualifiers: Qualified Code(s): E11.9 - Type 2 diabetes mellitus without complications (5) Hypertension Qualifiers: Hypertension type: unspecified Qualified Code(s): I10 - Essential (primary) hypertension
[2018-06-02] MEDS: Piperacillin/Tazobactam 3.375 GM in 0.9 % Sodium Chloride Mini Bag 100 ML IVPB SCH ×2 (04:59→16:26)
[2018-06-02 06:26] LABS: Mean Platelet Volume 10.7 fL (9.4-12.4); Nucleated Red Blood Cells 0.1 /100 WBC (0); Red Cell Distribution Width 13.5 % (11.5-14.5)
[2018-06-02 06:27] LABS: Hematocrit 34.5 % (35.3-44.9); Hemoglobin 11.5 g/dL (11.5-15.4); Mean Corpuscular HGB Conc 33.3 g/dL (31.6-35.5); Mean Corpuscular Hemoglobin 29.6 pg (28.0-33.3); Mean Corpuscular Volume 88.9 fL (83.0-100.0); Platelet Count 450 K/mcL (140-400); Red Blood Count 3.88 M/mcL (3.82-4.97)
[2018-06-02 06:58] LABS: Calcium 8.9 mg/dL (8.6-10.3); Potassium 4.1 mEq/L (3.5-5.1)
[2018-06-02] MEDS: Ipratropium/Albuterol Neb 3 ML IH SCH (07:19)
[2018-06-02 07:28] LABS: Eosinophils # 0.3 K/mcL (0.0-0.6); Lymphocytes # 2.2 K/mcL (0.6-4.6); Monocytes # 2.2 K/mcL (0.0-1.3); Neutrophils # 25.5 K/mcL (1.6-8.9); Platelet Estimate Increased (Normal)
[2018-06-02] MEDS: *HR* Heparin 5,000 UNIT/ML VIAL SQ SCH ×2 (07:33→16:26)
[2018-06-02] MEDS: amLODIPine 5 MG TABLET PO SCH (07:33)
[2018-06-02] MEDS: Propranolol LA (24 HR) 60 MG CAP.SA.24H PO SCH (07:33)
[2018-06-02] MEDS: cloNIDine HCl 0.1 MG TABLET PO SCH (07:33)
[2018-06-02] MEDS: Insulin LISPRO 300 UNITS/3 ML VIAL SQ SCH ×3 (07:34→16:21)
[2018-06-02] MEDS: Ondansetron 4 MG/2 ML VIAL IVP PRN (07:44)
[2018-06-02] MEDS: Acetaminophen 325 MG TABLET PO PRN (11:22)
[2018-06-02] MEDS: OXYCODONE Oral CONC 10 MG/0.5 ML ORAL.SYG SL PRN (16:27)
--- NOTE | 2018-06-02 16:46 | Procedure Note ---
Date of procedure: 06/02/18 Pre-op diagnosis: Bilateral pleural effusion and pneumonia Post-op diagnosis: same Procedure: Diagnostic and therapeutic thoracentesis Medications: Local lidocaine 1% 10 mL No immediate complications After obtaining informed consent from the daughter at the bedside as the power of manager freelance, the patient was placed in a sitting position. Using ultrasound, the right hemithorax was examined revealing a moderately sized pleural effusion. The best entry site was marked. The area was prepped in the usual sterile fashion. Fluid was aspirated using a catheter 8 range over 18-gauge needle which was placed in the mid-scapular line. 450 mL of serous fluid was removed. Fluid was sent for routine pleural analysis. Patient's condition improved after the procedure. Chest x-ray was ordered for any evidence of pneumothorax or complications. Anesthesia: local Surgeon: Winston Pretty Was there an executive assistant present: No Estimated blood loss (cc): 0.5 Specimen: yes Condition: stable Disposition: floor
--- NOTE | 2018-06-02 16:56 | Pulmonology Progress Note ---
Date of Encounter: 06/02/18 Time of Encounter: 11:00 Assessment and Plan (1) Acute hypoxemic respiratory failure Current Visit: Yes Status: Acute I discussed with the primary team and recommended to have CT chest which was done and subsequently it showed significant pneumonia and bilateral pleural effusion. I have explained this to the daughter at the bedside and her hypoxia is multifactorial and recommended thoracentesis and she agreed to have it done which was done. (2) Healthcare-associated pneumonia Current Visit: Yes Status: Acute Patient is on broad-spectrum antibiotics and she has multifocal pneumonia and I believe this is a reason for her significant leukocytosis and thoracentesis was done to check for any evidence of parapneumonic effusion/empyema. (3) Dementia Current Visit: Yes Status: Chronic Qualifiers: Alzheimer's disease onset: unspecified onset Qualified Code(s): G30.9 - Alzheimer's disease, unspecified; F02.81 - Dementia in other diseases classified elsewhere with behavioral disturbance (4) Pleural effusion Current Visit: Yes Status: Acute This need diagnostic and therapeutic thoracentesis and I've explained that to the daughter and she agreed to have it done and that was done and fluid send for analysis. Subjective Principal diagnosis: Dyspnea Interval history: It is difficult to communicate with the patient, but her daughter stated she is struggling to breath. Objective PUL Vital signs: Last Vital Signs Temp 97.7 F 06/02/18 15:23 Pulse 60 06/02/18 15:23 Resp 16 06/02/18 15:23 BP 155/71 06/02/18 15:23 Pulse Ox 92 06/02/18 15:23 General appearance: appears uncomfortable Eyes: nonicteric Neck: supple Effort: mildly labored Auscultation: bilateral: diminished breath sounds, rhonchi Percussion: bilateral: dull Tactile fremitus: bilateral: diminished Cardiovascular: regular rate and rhythm Gastrointestinal: normoactive bowel sounds, non-distended Extremities: no cyanosis, edema unable to assess due to mental status depressed Results - Laboratory Findings CBC and BMP: 06/02/18 05:08 06/02/18 05:08 PT/INR, D-dimer PT 13.1 Seconds (9.4-12.1) H 05/29/18 20:19 Abnormal lab findings: Abnormal lab results WBC 31.1 K/mcL (4.3-11.1) H* 06/02/18 05:08 Hct 34.5 % (35.3-44.9) L 06/02/18 05:08 Plt Count 450 K/mcL (140-400) H 06/02/18 05:08 Immature Gran % 4.6 % (0-4) H 05/29/18 20:26 Metamyelocytes % 1.0 % (0) H 06/02/18 05:08 Myelocytes % 2.0 % (0) H 06/02/18 05:08 Neutrophils # 25.5 K/mcL (1.6-8.9) H 06/02/18 05:08 Monocytes # 2.2 K/mcL (0.0-1.3) H 06/02/18 05:08 Nucleated RBCs/100 WBC 0.1 /100 WBC (0) H 06/02/18 05:08 Hypersegmented Neuts Present (Not Present) A 05/29/18 20:26 Platelet Estimate Increased (Normal) H 06/02/18 05:08 PT 13.1 Seconds (9.4-12.1) H 05/29/18 20:19 Sodium 127 mEq/L (136-145) L 06/02/18 05:08 Chloride 97 mEq/L (98-107) L 06/02/18 05:08 Carbon Dioxide 20 mEq/L (23-29) L 06/02/18 05:08 BUN 24 mg/dL (8-23) H 06/02/18 05:08 Creatinine 1.39 mg/dL (0.60-1.20) H 06/02/18 05:08 Est GFR ( Amer) 43 (> 60) L 06/02/18 05:08 Est GFR (Non-Af Amer) 36 (> 60) L 06/02/18 05:08 Glucose 188 mg/dL (70-105) H 06/02/18 05:08 POC Glucose 191 mg/dL (70-99) H 06/02/18 06:43 Calculated Osmolality 273 (280-300) L 06/02/18 05:08 Total Bilirubin 1.2 mg/dL (0.3-1.0) H 05/29/18 20:19 Alkaline Phosphatase 231 Units/L (34-104) H 05/29/18 20:19 Troponin I 0.06 ng/mL (< 0.04) H* 05/30/18 14:33 Albumin 2.8 g/dL (3.5-5.7) L 05/29/18 20:19 Globulin 4.4 g/dL (2.4-3.5) H 05/29/18 20:19 Albumin/Globulin Ratio 0.6 (1.1-2.2) L 05/29/18 20:19 Urine Clarity Cloudy (Clear) A 05/30/18 13:39 Urine Protein 30 mg/dL (Neg-Trace) H 05/30/18 13:39 Urine Blood Trace (Negative) H 05/30/18 13:39 Ur Squamous Epith Cells Many per lpf (None-Few) H 05/30/18 13:39 Urine Bacteria Many per hpf (None-Few) H 05/30/18 13:39 - Diagnostic Findings Chest x-ray: report reviewed, image reviewed CT scan - chest: report reviewed, image reviewed - Clinical Findings Intake & Output: Intake & Output 06/02/18 06/02/18 06/02/18 07:59 15:59 23:59 Intake Total 240 / 240 Output Total 800 / 800 Balance -800 / -800 240 / 240 Weight 68.7 kg Consult Discharge Plan - Plan Referrals: Jovi Sierra MD [Primary Care Provider] -
[2018-06-02] MEDS: Gabapentin 100 MG CAPSULE PO SCH (20:49)
[2018-06-02] MEDS: 0.9 % Sodium Chloride 1,000 ML IVC SCH (20:49)
[2018-06-02 21:59] LABS: RBC,Pleural Fluid 0.002 M/mcL
[2018-06-02 22:09] LABS: Appearance of Pleural Fl Clear (Clear)
[2018-06-02 22:16] LABS: Glucose,Pleural Fluid 153 mg/dL (No Ref Range); LDH,Pleural Fluid 171 Units/L (No Ref Range); Total Protein,Pleural Fluid < 3.0 g/dL (No Ref Range)
--- NOTE | 2018-06-02 23:03 | Internal Med Progress Note ---
Hospitalist Progress Note - Encounter Date of Encounter: 06/02/18 Time of Encounter: 19:00 - Subjective Interval History: SUBJECTIVE: The patient continues to have significant hypoxia. She uses supplemental oxygen at 4 L/min nasal cannula. This is associated with WBC of 31.1 thousand. Denies chest pain. Denies abdominal pain, nausea and vomiting. She has normal urination. She feels weak. She is not ready for any ambulation yet. OBJECTIVE: Skin: Free of rash and discoloration. ENMT: Oral/pharyngeal mucosa is normal in appearance. Eyes: Sclera is white. There is no discharge from eyes. Respiratory: Normal breath sounds; no crackles or wheezes. CV: Heart is regular; no gallop or murmur. GI: Abdomen is soft and not tender. There is no palpable mass or visceromegaly. Neuro: There is no focal deficits. ADDITIONAL DATA: CT of chest from today shows posterior bilateral lung consolidation and bilateral pleural effusion, with consolidative changes predominating in upper and mid posterior right lung and left lung base. WBC is 31.1 thousand; 27.4 thousand yesterday. With normal hemoglobin and platelet count. Sodium he 127; 122 at admission. Potassium is 4.1; 3.2 yesterday. Creatinine is 1.39; 1.5 to yesterday. ASSESSMENT AND PLAN: Healthcare associated pneumonia/acute respiratory failure with hypoxia. She is on IV Zosyn and IV Levaquin. I am adding IV vancomycin. She gets nebulizer treatments with DuoNeb. She did supplemental oxygen. Pulmonary diseases is consulted. Dr. Ballesteros did right-sided thoracentesis. 450 mL of fluid was obtained. Hyponatremia. Likely secondary to Lexapro. I stopped this medication at admiss ion. The sodium is rising. She has developed mild acute kidney injury. Likely due to volume depletion. She gets normal saline at 50 mL/h. Her Lasix is on hold. Hypokalemia. Better after giving her supplemental potassium chloride. Type 2 diabetes mellitus. On Levemir and Januvia at home. Currently, on Levemir and when necessary Humalog. Hypertension. She was hypotensive yesterday. Better after decreasing dose of clonidine and Inderal LA. GERD. On Prilosec. - Exam Vitals: Temp Pulse Resp BP Pulse Ox 97.7 F 58 16 171/67 93 06/02/18 19:24 06/02/18 19:24 06/02/18 19:24 06/02/18 19:24 06/02/18 20:00 Exam: xx - Assessment and Plan (1) Healthcare-associated pneumonia Current Visit: Yes Status: Acute (2) Acute hypoxemic respiratory failure Current Visit: Yes Status: Acute (3) Hyponatremia Current Visit: Yes Status: Acute (4) Type 2 diabetes mellitus Current Visit: Yes Status: Acute (5) Hypertension Current Visit: Yes Status: Acute - Time Spent with Patient Total time spent is greater than 50% in coordination of care (as documented) at patient's floor/unit and/or counseling patient: 25 - 35 minutes Internal Medicine: Result - Labs CBC & Chem 7: 06/02/18 05:08 06/02/18 05:08 Labs: Short CBC 06/02/18 Range/Units 05:08 WBC 31.1 H* (4.3-11.1) K/mcL Hgb 11.5 (11.5-15.4) g/dL Hct 34.5 L (35.3-44.9) % Plt Count 450 H (140-400) K/mcL Neutrophils # 25.5 H (1.6-8.9) K/mcL BMP 06/02/18 05:08 Sodium 127 L Potassium 4.1 D Chloride 97 L Carbon Dioxide 20 L BUN 24 H Creatinine 1.39 H Glucose 188 H Calcium 8.9 - ABG Interpretation ABG results: PT/INR, D-dimer PT 13.1 Seconds (9.4-12.1) H 05/29/18 20:19 - Impressions Impressions Chest CT 06/02/18 11:00 IMPRESSION: 1. Posterior bilateral lung consolidation and bilateral pleural effusion, with consolidative changes predominating upper and mid posterior right lung and left lung base. Presumably this reflects sequela from pneumonia. Underlying neoplasia cannot be excluded, suboptimally evaluated without IV contrast. 2. The mild mediastinal lymph node enlargement is probably reactive, though nonspecific. 3. Fluid within the esophagus in keeping with gastroesophageal reflux. 4. Calcific atherosclerosis aorta and its branches including the coronary arteries. 5. Images are degraded throughout by breathing motion. D/ / Estrada Ambrose / Estrada Ambrose Interpreting Provider: Estrada Ambrose Chest X-Ray 06/02/18 15:03 IMPRESSION: No pneumothorax after thoracentesis. Persistent small to moderate left pleural effusion. Slightly increased right upper lobe airspace disease, unchanged bilateral disease elsewhere D/ / Jeffy Richards MD / Jeffy Richards MD Interpreting Provider: Jeffy Richards MD Consult Discharge Plan - Plan Referrals: Jovi Sierra MD [Primary Care Provider] - (4) Type 2 diabetes mellitus Qualifiers: Qualified Code(s): E11.9 - Type 2 diabetes mellitus without complications (5) Hypertension Qualifiers: Hypertension type: unspecified Qualified Code(s): I10 - Essential (primary) hypertension
[2018-06-03] MEDS: Piperacillin/Tazobactam 3.375 GM in 0.9 % Sodium Chloride Mini Bag 100 ML IVPB SCH ×3 (00:01→16:57)
[2018-06-03] MEDS: *HR* Heparin 5,000 UNIT/ML VIAL SQ SCH ×3 (00:01→16:57)
[2018-06-03] MEDS: Ipratropium/Albuterol Neb 3 ML IH PRN ×3 (05:06→19:27)
[2018-06-03 05:30] LABS: Hemoglobin 10.3 g/dL (11.5-15.4); Mean Corpuscular HGB Conc 32.2 g/dL (31.6-35.5); Mean Corpuscular Hemoglobin 28.9 pg (28.0-33.3); Mean Corpuscular Volume 89.6 fL (83.0-100.0); Mean Platelet Volume 10.3 fL (9.4-12.4); Platelet Count 437 K/mcL (140-400); Red Blood Count 3.57 M/mcL (3.82-4.97); Red Cell Distribution Width 13.7 % (11.5-14.5)
[2018-06-03 05:47] LABS: Potassium 4.2 mEq/L (3.5-5.1)
[2018-06-03 06:18] LABS: Lymphocytes # 2.7 K/mcL (0.6-4.6); Monocytes # 0.8 K/mcL (0.0-1.3); Neutrophils # 15.8 K/mcL (1.6-8.9); Platelet Estimate Increased (Normal); Toxic Granulation Present (Not Present)
[2018-06-03 06:19] LABS: Large Platelets Present (Not Present)
[2018-06-03] MEDS: amLODIPine 5 MG TABLET PO SCH (08:33)
[2018-06-03] MEDS: cloNIDine HCl 0.1 MG TABLET PO SCH (08:33)
[2018-06-03] MEDS: Propranolol LA (24 HR) 60 MG CAP.SA.24H PO SCH (08:33)
[2018-06-03] MEDS: Insulin LISPRO 300 UNITS/3 ML VIAL SQ SCH ×3 (08:47→17:08)
[2018-06-03] MEDS: Cholestyramine 4 GM POWD.PACK PO SCH ×2 (09:45→14:50)
[2018-06-03] MEDS: Levofloxacin 750 MG/150 ML 750 MG/150 ML BAG IVPB SCH (10:11)
[2018-06-03] MEDS ORDERED: Cholestyramine 4 GM POWD.PACK PO PRN (15:18)
[2018-06-03] MEDS: 0.9 % Sodium Chloride 1,000 ML IVC SCH (18:30)
[2018-06-03] MEDS: Gabapentin 100 MG CAPSULE PO SCH (21:11)
--- NOTE | 2018-06-03 23:42 | Internal Med Progress Note ---
Hospitalist Progress Note - Encounter Date of Encounter: 06/03/18 Time of Encounter: 19:00 - Subjective Interval History: SUBJECTIVE: The patient feels weak. She has not started her physical therapy yet; I ordered yesterday. Denies chest pain. Denies difficulty breathing; on supplemental oxygen at 3 L/min (4 L/min yesterday). She has mild cough but not wheezing. Denies chest pain. Denies abdominal pain, nausea and vomiting. She makes good amounts of urine. OBJECTIVE: Skin: Free of rash and discoloration. ENMT: Oral/pharyngeal mucosa is normal in appearance. Eyes: Sclera is white. There is no discharge from eyes. Respiratory: Normal breath sounds; no crackles or wheezes. CV: Heart is regular; no gallop or murmur. GI: Abdomen is soft and not tender. There is no palpable mass or visceromegaly. Neuro: There is no focal deficits. ADDITIONAL DATA: CT of chest from yesterday showed posterior bilateral lung consolidation and bilateral pleural effusion, with consolidative changes predominating in upper and mid posterior right lung and left lung base. Finally, we see her WBC trending down. It is 20.5 thousand; 31.1 thousand yesterday. We have hemoglobin of 10.3 and platelet count of 437,000. Sodium is 132; 125 at admission. Potassium is 4.2; 3.2 was 2 days ago. Creatinine is 1.32; 1.60 was 3 days ago. ASSESSMENT AND PLAN: Healthcare associated pneumonia/acute respiratory failure with hypoxia. Better today, comparing to yesterday. She is on IV Zosyn and IV Levaquin. I added IV vancomycin yesterday. She gets nebulizer treatments with DuoNeb. She uses supplemental oxygen. Pulmonary diseases is consulted. Dr. Ballesteros did right-sided thoracentesis yesterday; 450 mL of fluid was obtained. She his physical therapy started. Hyponatremia. Likely secondary to Lexapro. I stopped this medication at admission. The sodium is rising. She has developed mild acute kidney injury. Likely due to volume depletion. I gave her 1 L of normal saline. I put her Lasix on hold. Hypokalemia. Better after giving her supplemental potassium chloride. Type 2 diabetes mellitus. On Levemir and Januvia at home. Currently, on Le vemir and when necessary Humalog. Hypertension. She was hypotensive 2 days ago. I decreased dose of clonidine and Inderal LA. I will start her on low-dose lisinopril. The plan is to discontinue clonidine. GERD. On Prilosec. - Exam Vitals: Temp Pulse Resp BP Pulse Ox 97.9 F 63 16 170/66 94 06/03/18 19:29 06/03/18 19:29 06/03/18 19:29 06/03/18 19:29 06/03/18 20:00 Exam: xx - Assessment and Plan (1) Healthcare-associated pneumonia Current Visit: Yes Status: Acute (2) Acute hypoxemic respiratory failure Current Visit: Yes Status: Acute (3) Hyponatremia Current Visit: Yes Status: Acute (4) Type 2 diabetes mellitus Current Visit: Yes Status: Acute (5) Hypertension Current Visit: Yes Status: Acute - Time Spent with Patient Total time spent is greater than 50% in coordination of care (as documented) at patient's floor/unit and/or counseling patient: 25 - 35 minutes Plan of Care Discussed with: patient Internal Medicine: Result - Labs CBC & Chem 7: 06/03/18 04:16 06/03/18 04:16 Labs: Short CBC 06/03/18 Range/Units 04:16 WBC 20.5 H (4.3-11.1) K/mcL Hgb 10.3 L (11.5-15.4) g/dL Hct 32.0 L (35.3-44.9) % Plt Count 437 H (140-400) K/mcL Neutrophils # 15.8 H (1.6-8.9) K/mcL BMP 06/03/18 04:16 Sodium 132 L Potassium 4.2 Chloride 101 Carbon Dioxide 19 L BUN 21 Creatinine 1.32 H Glucose 151 H Calcium 9.0 - ABG Interpretation ABG results: PT/INR, D-dimer PT 13.1 Seconds (9.4-12.1) H 05/29/18 20:19 - Impressions Impressions Chest X-Ray 06/03/18 15:33 IMPRESSION: Stable chest with right upper lobe airspace opacification consistent with pneumonia. Additional patchy opacities bilaterally. Bilateral pleural effusions and bibasilar atelectasis/infiltrates. D/ / Lanie Yuan MD / Lanie Yuan MD Interpreting Provider: Lanie Yuan MD Consult Discharge Plan - Plan Referrals: Jovi Sierra MD [Primary Care Provider] - (4) Type 2 diabetes mellitus Qualifiers: Qualified Code(s): E11.9 - Type 2 diabetes mellitus without complications (5) Hypertension Qualifiers: Hypertension type: unspecified Qualified Code(s): I10 - Essential (primary) hypertension
[2018-06-04] MEDS: *HR* Heparin 5,000 UNIT/ML VIAL SQ SCH ×3 (00:30→16:37)
[2018-06-04] MEDS: Piperacillin/Tazobactam 3.375 GM in 0.9 % Sodium Chloride Mini Bag 100 ML IVPB SCH ×3 (00:31→16:34)
[2018-06-04] MEDS: Insulin LISPRO 300 UNITS/3 ML VIAL SQ SCH ×3 (08:29→16:33)
[2018-06-04] MEDS: cloNIDine HCl 0.1 MG TABLET PO SCH (08:30)
[2018-06-04] MEDS: amLODIPine 5 MG TABLET PO SCH (08:30)
[2018-06-04] MEDS: Propranolol LA (24 HR) 60 MG CAP.SA.24H PO SCH (08:30)
--- NOTE | 2018-06-04 13:20 | Internal Med Progress Note ---
Hospitalist Progress Note - Encounter Date of Encounter: 06/04/18 Time of Encounter: 10:35 - Subjective Interval History: Patient lying down in bed. She denies any fevers or chills overnight. She reports that she has been able to breathe a little easier since her thoracentesis done yesterday. She continues to feel weak and tired. No nausea or vomiting. Denies any headache. Patient's family is concerned that she is not been able to eat much. She does not have any trouble swallowing but does not have a good appetite. - Exam Vitals: Temp Pulse Resp BP Pulse Ox 97.7 F 64 18 150/64 93 06/04/18 10:42 06/04/18 10:42 06/04/18 10:42 06/04/18 10:42 06/04/18 10:42 Exam: General: Patient is alert, mild distress, oriented x 2 ENT: Mucous membranes moist Respiratory: Decreased breath sounds at both bases. Mild rhonchi bilaterally Cardiovascular: Regular rate and rhythm. s1 and s2 normal systolic murmur present. No pedal edema Abdomen: Abdomen is soft, nontender. Bowel sounds are present Musculoskeletal: Spontaneously moving all extremities Skin: warm, dry, intact. Neuro: Alert oriented x 2 normal cranial nerves, no focal deficits - Assessment and Plan (1) Acute hypoxemic respiratory failure Current Visit: Yes Status: Acute Assessment and Plan: Continue O2 supplementation. Currently on 4 L nasal cannula. We will wean down as tolerated. Treat underlying pneumonia. (2) Healthcare-associated pneumonia Current Visit: Yes Status: Acute Assessment and Plan: On broad-spectrum antibiotics. We will stop Levaquin as patient has been on it since admission. Continue vancomycin and Zosyn for now. Thoracentesis done yesterday. Fluid appears to be transudate. Cultures not sent. Recheck CBC today. Moderate risk for complications. (3) Type 2 diabetes mellitus Current Visit: Yes Status: Chronic Assessment and Plan: Blood sugars are elevated today. Will place patient on long-acting insulin. (4) Hypertension Current Visit: Yes Status: Chronic Assessment and Plan: Blood pressure elevated. Patient currently on clonidine, propranolol, amlodipi ne and lisinopril. We will continue to monitor blood pressure. If persistently elevated in the next 24-48 hours, will increase antihypertensive regimen accordingly. (5) Hyponatremia Current Visit: Yes Status: Acute Assessment and Plan: Improved. Sodium 132. Possibly from dehydration and Lexapro use. Lexapro has been stopped. We will continue to monitor sodium levels. DVT Prophylaxis: On subcutaneous heparin - Time Spent with Patient Total time spent is greater than 50% in coordination of care (as documented) at patient's floor/unit and/or counseling patient: Internal Medicine: Result - Labs CBC & Chem 7: 06/03/18 04:16 06/03/18 04:16 - ABG Interpretation ABG results: PT/INR, D-dimer PT 13.1 Seconds (9.4-12.1) H 05/29/18 20:19 - Impressions Impressions Chest X-Ray 06/03/18 15:33 IMPRESSION: Stable chest with right upper lobe airspace opacification consistent with pneumonia. Additional patchy opacities bilaterally. Bilateral pleural effusions and bibasilar atelectasis/infiltrates. D/ / Lanie Yuan MD / Lanie Yuan MD Interpreting Provider: Lanie Yuan MD Consult Discharge Plan - Plan Referrals: Jovi Sierra MD [Primary Care Provider] - (3) Type 2 diabetes mellitus Qualifiers: Diabetes mellitus exterminator termite insulin use: with assisted use Diabetes mellitus complication status: with hyperglycemia Qualified Code(s): E11.65 - Type 2 diabetes mellitus with hyperglycemia; Z79.4 - manager terminal (current) use of insulin (4) Hypertension Qualifiers: Hypertension type: essential hypertension Qualified Code(s): I10 - Essential (primary) hypertension
[2018-06-04] MEDS: Acetaminophen 325 MG TABLET PO PRN (14:31)
[2018-06-04 15:04] LABS: Calcium 9.2 mg/dL (8.6-10.3); Potassium 3.9 mEq/L (3.5-5.1)
[2018-06-04 15:43] LABS: Basophils # 0.2 K/mcL (0.0-0.2); Basophils % 0.8 %; Eosinophils # 0.3 K/mcL (0.0-0.6); Eosinophils % 1.4 %; Hematocrit 33.5 % (35.3-44.9); Hemoglobin 10.9 g/dL (11.5-15.4); Immature Granulocytes % 4.9 % (0-4); Lymphocytes # 1.6 K/mcL (0.6-4.6); Lymphocytes % 7.9 %; Mean Corpuscular HGB Conc 32.5 g/dL (31.6-35.5); Mean Corpuscular Hemoglobin 29.1 pg (28.0-33.3); Mean Corpuscular Volume 89.3 fL (83.0-100.0); Neutrophils # 16.2 K/mcL (1.6-8.9); Platelet Count 424 K/mcL (140-400); Red Blood Count 3.75 M/mcL (3.82-4.97); Red Cell Distribution Width 13.8 % (11.5-14.5)
[2018-06-04] MEDS: Furosemide 40 MG TABLET PO SCH (16:39)
[2018-06-04] MEDS: Gabapentin 100 MG CAPSULE PO SCH (22:40)
[2018-06-05] MEDS: Piperacillin/Tazobactam 3.375 GM in 0.9 % Sodium Chloride Mini Bag 100 ML IVPB SCH ×3 (00:54→17:07)
[2018-06-05] MEDS: *HR* Heparin 5,000 UNIT/ML VIAL SQ SCH ×3 (00:55→17:07)
[2018-06-05 04:53] LABS: Basophils # 0.1 K/mcL (0.0-0.2); Basophils % 0.6 %; Eosinophils # 0.3 K/mcL (0.0-0.6); Eosinophils % 1.7 %; Hematocrit 33.1 % (35.3-44.9); Hemoglobin 10.9 g/dL (11.5-15.4); Immature Granulocytes % 3.8 % (0-4); Lymphocytes # 1.3 K/mcL (0.6-4.6); Lymphocytes % 6.9 %; Mean Corpuscular HGB Conc 32.9 g/dL (31.6-35.5); Mean Corpuscular Hemoglobin 28.9 pg (28.0-33.3); Mean Corpuscular Volume 87.8 fL (83.0-100.0); Monocytes # 1.1 K/mcL (0.0-1.3); Monocytes % 5.4 %; Neutrophils # 15.8 K/mcL (1.6-8.9); Platelet Count 426 K/mcL (140-400); Red Blood Count 3.77 M/mcL (3.82-4.97); Red Cell Distribution Width 13.7 % (11.5-14.5); Segmented Neutrophils % 81.6 %
[2018-06-05 05:09] LABS: Calcium 9.2 mg/dL (8.6-10.3); Potassium 3.8 mEq/L (3.5-5.1)
[2018-06-05] MEDS: Ondansetron 4 MG/2 ML VIAL IVP PRN (09:16)
[2018-06-05] MEDS: Insulin LISPRO 300 UNITS/3 ML VIAL SQ SCH ×3 (09:17→17:23)
[2018-06-05] MEDS: OXYCODONE Oral CONC 10 MG/0.5 ML ORAL.SYG SL PRN ×2 (09:19→14:29)
[2018-06-05] MEDS: Furosemide 40 MG TABLET PO SCH ×2 (09:19→18:00)
[2018-06-05] MEDS: cloNIDine HCl 0.1 MG TABLET PO SCH (11:20)
[2018-06-05] MEDS: Propranolol LA (24 HR) 60 MG CAP.SA.24H PO SCH (11:20)
[2018-06-05] MEDS: amLODIPine 5 MG TABLET PO SCH (11:21)
--- NOTE | 2018-06-05 15:31 | Discharge Summary ---
- NOTES TO OUTPATIENT PROVIDER Notes to Outpatient Provider: Patient with a history of hypertension, diabetes mellitus, chronic pain and dementia, chronic kidney disease who has been under hospice care was hospitalized here for acute hypoxic respiratory failure and healthcare associated pneumonia. Patient had initially required up to 8 L of O2 supplementation to bring her saturation greater than 90%. She was treated with broad-spectrum antibiotics and pulmonology was consulted. Patient did have hyponatremia initially and this was believed to be due to Lexapro use. After this medication was stopped her sodium levels have improved. Patient was evaluated by pulmonology and recommended thoracentesis which was done on 06/02. Fluid analysis suggests transudative effusion. Patient's WBC count has now trended down and clinically patient appears to be doing much better. At this time, she is stable to be discharged on oral antibiotics to complete 7-10 day treatment course. Patient has been accepted at [facility] and will be discharged today. Orders not resulted at time of discharge: Pending orders 05/29/18 19:55 Culture,Sputum with Gram Stain [RM] Stat 06/02/18 16:52 Cytology Other [PTH] Routine Date of Encounter: 06/05/18 Time of Encounter: 15:27 - Discharge Diagnosis (1) Acute hypoxemic respiratory failure Priority: Primary Status: Acute (2) Healthcare-associated pneumonia Priority: Secondary Status: Acute (3) Type 2 diabetes mellitus Priority: Secondary Status: Chronic Qualifiers: Diabetes mellitus fpc insulin use: with fpc use Diabetes daiana litus complication status: with hyperglycemia Qualified Code(s): E11.65 - Type 2 diabetes mellitus with hyperglycemia; Z79.4 - group home (current) use of insulin (4) Hypertension Priority: Secondary Status: Chronic Qualifiers: Hypertension type: essential hypertension Qualified Code(s): I10 - Essential (primary) hypertension (5) Hyponatremia Priority: Secondary Status: Resolved Hospital course: Ms. Sam is a 87 year old female Patient with a history of hypertension, diabetes mellitus, chronic pain and dementia, chronic kidney disease who has been under hospice care was hospitalized here for acute hypoxic respiratory failure and healthcare associated pneumonia. Patient had initially required up to 8 L of O2 supplementation to bring her saturation greater than 90%. She was treated with broad-spectrum antibiotics and pulmonology was consulted. Patient did have hyponatremia initially and this was believed to be due to Lexapro use. After this medication was stopped her sodium levels have improved. Patient was evaluated by pulmonology and recommended thoracentesis which was done on 06/02. Fluid analysis suggests transudative effusion. Patient's WBC count has now trended down and clinically patient appears to be doing much better. At this time, she is stable to be discharged on oral antibiotics to complete 7-10 day treatment course. Patient has been accepted at [facility] and will be discharged today. We have decreased her dosage of propranolol and clonidine as patient was hypotensive initially. Instead we have also placed her on the lisinopril due to her diabetes and underlying chronic kidney disease. Discharge discussed with: patient, nurse - Time Spent with Patient Total time spent providing and/or coordinating discharge services: Time spent: Greater than 30 minutes (45 min) - Discharge Medications Prescriptions: New OXYCODONE Oral CONC [Oxycodone Oral Conc] 5 mg SL Q4HR PRN 5 Days #10 oral.syg PRN Reason: Severe Pain cloNIDine HCl [CloNIDine HCl] 0.1 mg PO DAILY tablet Lisinopril [Zestril] 5 mg PO DAILY #30 tablet Propranolol LA (24 HR) [Inderal LA] 60 mg PO DAILY cap.sa.24h Linezolid [Zyvox] 600 mg PO BID #10 tablet Amoxicillin/Clavulanate [Augmentin] 500 mg PO BIDWM #4 tablet Lactobacillus Acidophilus [Acidophilus] 1 each PO BID #20 capsule Continue SitaGLIPtin [Januvia] 100 mg PO HS Insulin DETEMIR [Levemir Flextouch] 12 units SQ HS Gabapentin [Neurontin] 100 mg PO HS Furosemide [Lasix] 40 mg PO BID Calcitriol [Rocaltrol] 0.25 mcg PO DAILY Amlodipine Besylate 5 mg PO DAILY glipiZIDE [Glipizide ER] 10 mg PO DAILY Escitalopram [Lexapro] 20 mg PO DAILY Rizatriptan Benzoate [Maxalt] 10 mg PO AD PRN PRN Reason: Migraine Headache Albuterol Sulfate [Albuterol Inhaler] 2 puff IH Q4-6H PRN PRN Reason: Shortness Of Breath Pantoprazole Sodium [Protonix] 40 mg PO DAILY LORazepam [Ativan] 1 mg PO Q12H PRN 5 Days #10 tablet PRN Reason: Anxiety Discontinued Propranolol HCl [Innopran Xl] 120 mg PO DAILY cloNIDine HCl [Clonidine HCl] 0.2 mg PO DAILY Morphine Sulfate [Maggie] 1 cap PO BID Home Medications: Albuterol Sulfate [Albuterol Inhaler] 2 puff IH Q4-6H PRN 05/29/18 [History] Amlodipine Besylate 5 mg PO DAILY 05/29/18 [History] Calcitriol [Rocaltrol] 0.25 mcg PO DAILY 05/29/18 [History] Escitalopram [Lexapro] 20 mg PO DAILY 05/29/18 [History] Furosemide [Lasix] 40 mg PO BID 05/29/18 [History] Gabapentin [Neurontin] 100 mg PO HS 05/29/18 [History] Insulin DETEMIR [Levemir Flextouch] 12 units SQ HS 05/29/18 [History] Pantoprazole Sodium [Protonix] 40 mg PO DAILY 05/29/18 [History] Rizatriptan Benzoate [Maxalt] 10 mg PO AD PRN 05/29/18 [History] SitaGLIPtin [Januvia] 100 mg PO HS 05/29/18 [History] glipiZIDE [Glipizide ER] 10 mg PO DAILY 05/29/18 [History] Amoxicillin/Clavulanate [Augmentin] 500 mg PO BIDWM #4 tablet 06/05/18 [Rx] LORazepam [Ativan] 1 mg PO Q12H PRN 5 Days #10 tablet 06/05/18 [Rx] Lactobacillus Acidophilus [Acidophilus] 1 each PO BID #20 capsule 06/05/18 [Rx] Linezolid [Zyvox] 600 mg PO BID #10 tablet 06/05/18 [Rx] Lisinopril [Zestril] 5 mg PO DAILY #30 tablet 06/05/18 [Rx] OXYCODONE Oral CONC [Oxycodone Oral Conc] 5 mg SL Q4HR PRN 5 Days #10 oral.syg 06/05/18 [Rx] Propranolol LA (24 HR) [Inderal LA] 60 mg PO DAILY cap.sa.24h 06/05/18 [Rx] cloNIDine HCl [CloNIDine HCl] 0.1 mg PO DAILY tablet 06/05/18 [Rx] Allergies/Adverse Reactions: Allergy/AdvReac Type Severity Reaction Status Date / Time No Known Allergies Allergy Unverified 12/10/15 08:25 Date of admission: 05/29/18 19:50 Primary care physician: Jovi Sierra MD Consults: 05/29/18 20:11 Consult to Pulmonology [CONS] Routine Consulting Provider: [facility] [place] Reason for Consult: Patient receiving HCAP treatment for bilateral pneumonia; transferred from [facility] because patient was not improving. Call Completed: No 05/30/18 09:27 Consult to Nurse Navigator [CONS] Routine Comment: pn 06/02/18 09:45 PT [Consult to Physical Therapy] [CONS] Routine Comment: Evaluate, develop and implement POC Reason for Consult: increased weakness Does patient have active BEDREST order?: No Is patient medically & hemodynamically stable?: Yes 06/02/18 09:46 OT [Consult to Occupational Therapy] [CONS] Routine Comment: Evaluate, develop and implement POC Reason for Consult: increase weakness Does patient have active BEDREST order?: No Is patient medically & hemodynamically stable?: Yes 06/02/18 09:59 Consult to [employer] Day Worker [CONS] Routine Reason for SW Consult: ECF needs 06/02/18 10:40 Consult to Pulmonology [CONS] Routine Consulting Provider: [facility] [place] Reason for Consult: HCAP/AC RESP FAILURE; HIGH WBC... Time Notified: 10:30 Call Completed: Yes 06/02/18 12:42 Consult to Nurse Navigator [CONS] Routine Comment: pn Discharging clinician: Sidra Wade Anticipated date of discharge: 06/05/18 - Constitutional Vitals: Temp Pulse Resp BP Pulse Ox 97.5 F L 67 14 146/67 97 06/05/18 11:05 06/05/18 11:05 06/05/18 11:05 06/05/18 11:05 06/05/18 11:05 General appearance: Present: cooperative, A&O X 2, pleasant, answers questions appropriately Exam: . - Respiratory Respiratory exam: Present: wheezes. Absent: accessory muscle use, rales, rhonchi - Cardiovascular Cardiovascular exam: Present: RRR, +S1, +S2. Absent: diastolic murmur, gallop, rubs, systolic murmur - GI/Abdominal GI/Abdominal exam: Present: normal bowel sounds, soft, no peritoneal signs. Absent: distended, tenderness - Patient Status Disposition: Transfer SNF Condition: Fair Functional capacity at discharge: bed bound Overall status at discharge: patient is progressing back to baseline - Discharge Instructions Instructions: Acute Respiratory Distress Syndrome (DC) Follow Up With: Jovi Sierra MD [Primary Care Provider] - (in 1-2 weeks) - Diet and Activity Activity: increase activity as tolerated Diet: advance to your usual diet, diabetic diet, low fat, low cholesterol, low salt diet
--- NOTE | 2018-06-05 15:49 | Physician Discharge Referral ---
ExtendedCare Referral Info Provider in Charge after Transfer: PCP Institutional Level of Care: Skilled - Diagnosis (1) Acute hypoxemic respiratory failure Priority: Primary Status: Acute (2) Healthcare-associated pneumonia Priority: Secondary Status: Acute (3) Type 2 diabetes mellitus Priority: Secondary Status: Chronic (4) Hypertension Priority: Secondary Status: Chronic (5) Hyponatremia Priority: Secondary Status: Resolved Prognosis: Fair - Transfer Medications Prescriptions: OXYCODONE Oral CONC [Oxycodone Oral Conc] 5 mg SL Q4HR PRN 5 Days #10 oral.syg PRN Reason: Severe Pain Amoxicillin/Clavulanate [Augmentin] 500 mg PO BIDWM #4 tablet Lactobacillus Acidophilus [Acidophilus] 1 each PO BID #20 capsule Linezolid [Zyvox] 600 mg PO BID #10 tablet Lisinopril [Zestril] 5 mg PO DAILY #30 tablet LORazepam [Ativan] 1 mg PO Q12H PRN 5 Days #10 tablet PRN Reason: Anxiety Home Medications: Albuterol Sulfate [Albuterol Inhaler] 2 puff IH Q4-6H PRN 05/29/18 [History] Amlodipine Besylate 5 mg PO DAILY 05/29/18 [History] Calcitriol [Rocaltrol] 0.25 mcg PO DAILY 05/29/18 [History] Escitalopram [Lexapro] 20 mg PO DAILY 05/29/18 [History] Furosemide [Lasix] 40 mg PO BID 05/29/18 [History] Gabapentin [Neurontin] 100 mg PO HS 05/29/18 [History] Insulin DETEMIR [Levemir Flextouch] 12 units SQ HS 05/29/18 [History] Pantoprazole Sodium [Protonix] 40 mg PO DAILY 05/29/18 [History] Rizatriptan Benzoate [Maxalt] 10 mg PO AD PRN 05/29/18 [History] SitaGLIPtin [Januvia] 100 mg PO HS 05/29/18 [History] glipiZIDE [Glipizide ER] 10 mg PO DAILY 05/29/18 [History] Amoxicillin/Clavulanate [Augmentin] 500 mg PO BIDWM #4 tablet 06/05/18 [Rx] LORazepam [Ativan] 1 mg PO Q12H PRN 5 Days #10 tablet 06/05/18 [Rx] Lactobacillus Acidophilus [Acidophilus] 1 each PO BID #20 capsule 06/05/18 [Rx] Linezolid [Zyvox] 600 mg PO BID #10 tablet 06/05/18 [Rx] Lisinopril [Zestril] 5 mg PO DAILY #30 tablet 06/05/18 [Rx] OXYCODONE Oral CONC [Oxycodone Oral Conc] 5 mg SL Q4HR PRN 5 Days #10 oral.syg 06/05/18 [Rx] Propranolol LA (24 HR) [Inderal LA] 60 mg PO DAILY cap.sa.24h 06/05/18 [Rx] cloNIDine HCl [CloNIDine HCl] 0.1 mg PO DAILY tablet 06/05/18 [Rx] Allergies/Adverse Reactions: Allergy/AdvReac Type Severity Reaction Status Date / Time No Known Allergies Allergy Unverified 01/27/15 08:25 - Respiratory Orders Oxygen / L per min (Keep sats greater than 88%) Smoking Cessation: Smoking cessation has been advised. For more information, call the [place] Tobacco Quit Line at 9-052-KCWP-NOW. - Ancillary Orders May use pressure relief devices daily prn - Advance Directives Code Status: DNR-Arrest/Don't Intubate - Mobility Orders Other (per PT eval) - Rehabiliation Orders Rehab Potential: Fair Rehab Orders: Evaluation for Physical Therapy, Evaluation for Occupational Therapy - Diet Orders Cardiac CERTIFICATION: I certify that the transfer of the above named patient to an Extended Care Facility is necessary for the continuing treatment of the diagnosis listed. The above information is true and accurate reflection of patient's current condition. Confidential - Redisclosure prohibited without a patient's written consent.
[2018-06-05] MEDS: Levofloxacin 750 MG/150 ML 750 MG/150 ML BAG IVPB SCH (17:07)
[2018-06-05 18:28] VITALS: BP 150/69
== END 2018-06-05 19:06 | DRG 193 ==
LOC: 2ANU → SUATTDRO 19:50
PROVIDERS: ADMIT Hospitalist; ATTEND Internal Medicine